=== PATIENT | male | born 1935 | race Caucasian/White ===

== ENCOUNTER 2017-11-26 17:17 | Observation (INO) | payer MEDICARE, OTHER ==
[~2017-11-26] VITALS: Ht 180.3 cm; Wt 90.3 kg
[~2017-11-26 17:17] MED LIST: ADVICOR 500 MG1 EACH; ALTACE5 MG PO; AMARYL1 MG PO; ASA5UEC; BENTYL 10 MG CA10 MG PO; BETAMETHASONE D15 G1; COUMADIN 3 MG TA3 M1 PO; COUMADIN 4 MG TA4 M1 PO; COUMADIN PO; DIOVAN HCT 80-1 EACH; DOXYCYCLINE 10100 MG PO; ENOXAPARIN100 MG/11 SUBQ; FISH OIL 500 M1 EAC1 PO; GLUCOPHAGE500 MG PO; IBUPROFEN 200200 M1 PO; LEVAQUIN 500 M500 M2; LOVENOX SUBQ; Nabumetone PO; OMEGA-31000 M1 PO; OXYBUTYNIN 5 MG5 M2 PO; POTASSIUM CHLO10 ME1 PO; PREDNISONE 10 M10 MG PO; PROTONIX40 M1 PO; TAMSULOSIN HCL0.4 MG; TRIAMCINOLONE A80 G2 TOP; VITAMIN D2000 UNIT PO; ZETIA10 MG; ZPAK PO
[2017-11-26 17:27] VITALS: BP 161/83
[2017-11-26] MEDS ORDERED: OXYBUTYNIN 5 MG5 M2 PO (17:35)
[2017-11-26 19:11] LABS: APTT 37.3 Seconds (25.0-31.3); INR 2.8; PROTIME 26.8 Seconds (9.20-11.50)
[2017-11-26 20:43] LABS: HEMATOCRIT 47.1 % (42.0-52.0); HEMOGLOBIN 16.2 gm/dL (14.0-18.0); MCH 28.2 pg (26.0-34.0); MCHC 34.4 g/dL (28.0-37.0); MCV 82.2 fL (80.0-100.0); MPV 8.8 fl. (7.2-11.1); NUCLEATED RBCS 0 /100WBC; PLATELET COUNT* 216 thou/uL (150-400); RBC 5.74 mil/uL (4.50-6.00); RDW-CV 13.7 % (10.5-14.5); WBC 17.1 thou/uL (4.0-11.0)
[2017-11-26 21:03] LABS: CALCIUM 9.7 mg/dL (8.5-10.1); CREATININE 1.6 mg/dL (0.6-1.3); POTASSIUM 4.2 mmol/L (3.5-5.1)
[2017-11-26 21:04] LABS: ABSOLUTE EOSINOPHILS 0.2 thou/uL (0.0-0.7); ABSOLUTE LYMPHOCYTES 1.5 thou/uL (0.8-5.3); ABSOLUTE MONOCYTES 0.7 thou/uL (0.0-1.2); ABSOLUTE NEUTROPHILS 14.7 thou/uL (1.6-8.1)
[2017-11-26 21:05] LABS: PLATELET ESTIMATE ADEQUATE
[2017-11-26 21:07] LABS: ALBUMIN 3.7 g/dL (3.4-5.0); TOTAL BILIRUBIN 1.4 mg/dL (<0.1-1.0); TOTAL PROTEIN 6.9 g/dL (6.4-8.2)
[2017-11-26 21:30] VITALS: BP 156/76
[2017-11-26 21:33] VITALS: BP 167/77
[2017-11-26 23:14] VITALS: BP 126/72; BP 150/72
[2017-11-27 04:00] VITALS: BP 131/62
--- NOTE | 2017-11-27 04:32 | NUR ---
RECEIVED REPORT FROM ER NURSE TACOS AT 2129, PT ARRIVED TO UNIT AT 2144. PT VOICED NO CONCERNS, SPOUSE AT BEDSIDE, PT AAOX4, DENIES PAIN. FALL PRECAUTIONS IN PLACE, AT 2333, INFUSION OF FRESH FROZEN PLASMA STARTED, AT 0028. COMPLETED ADMINISTRATION. PT BEGAN C/O ITCHING. RED BUMPS NOTED TO CHEST AND FACE, DR. MONET NOTIFIED AND NEW ORDERS RECEIVED AT 0033. HOURLY ROUNDING COMPLETED, CONTINUES ON TELE MONITOR TRACING SINUS RHYTHM THIS SHIFT. CALL LIGHT WITHIN REACH.
[2017-11-27 04:51] LABS: INR 2.2; PROTIME 21.5 Seconds (9.20-11.50)
[2017-11-27 04:54] LABS: HEMATOCRIT 45.9 % (42.0-52.0); HEMOGLOBIN 15.8 gm/dL (14.0-18.0); MCH 28.3 pg (26.0-34.0); MCHC 34.3 g/dL (28.0-37.0); MCV 82.4 fL (80.0-100.0); MPV 8.6 fl. (7.2-11.1); RBC 5.58 mil/uL (4.50-6.00); RDW-CV 13.5 % (10.5-14.5); WBC 14.6 thou/uL (4.0-11.0)
[2017-11-27 05:18] LABS: ALBUMIN 3.8 g/dL (3.4-5.0); CALCIUM 9.9 mg/dL (8.5-10.1); CREATININE 1.6 mg/dL (0.6-1.3); POTASSIUM 4.8 mmol/L (3.5-5.1); TOTAL BILIRUBIN 1.8 mg/dL (<0.1-1.0); TOTAL PROTEIN 6.5 g/dL (6.4-8.2)
[2017-11-27] MEDS ORDERED: OXYBUTYNIN 5 MG5 M2 PO (08:06)
[2017-11-27] MEDS ORDERED: BETAMETHASONE D15 G1 TOP (08:11)
[2017-11-27 09:00] VITALS: BP 159/78
--- NOTE | 2017-11-27 10:00 | NUR ---
ASSUMED PT. CARE AND RECEIVED REPORT AT 0730. PT A/OX4, WITH SOME NOTED CONFUSION, VSS, MONITOR ON TRACING SR. PT. DENIES CURRENT PAIN/SOB. ON RA @ 93%. FULL ASSESSMENT COMPLETED, REFER TO CHARTING. DR. RIZVI NOTIFIED VIA PHONE THAT PT. INR 2.2 TODAY. ORDERS RECEIVED TO SLOWLY ALLOW PT. TO DRINK SIPS OF WATER AND SEE IF HE CAN SWALLOW OR IF FOOD BOLUS REMAINS IN PLACE. PT. TOLERATED WATER WELL, ABLE TO DRINK WITHOUT DIFFICULTY AND DOES NOT FEEL LIKE ANYTHING REMAINS IN ESOPHOGUS. BRIAN Altamirano HERE TO SEE PT, UPDATED ON CURRENT SITUATION. PLAN FOR PT. TO RECEIVED VITAMIN K TODAY, THEN DC HOME. FOLLOW UP OUTPATIENT FOR EGD TOMORROW AT [facility]. PT. AT BEDSIDE, AWARE OF PLAN. PT. MUST TOLERATED FULL LIQUID LUNCH FIRST, WILL MONITOR. FALL PRECAUTIONS REMAIN IN PLACE.
--- NOTE | 2017-11-27 11:00 | NUR ---
MET WITH PT AND TO DISCUSS HOME SITUATION/DC PLANNING. PT LIVES WITH , USES CANE AND IS FAIRLY INDEPENDENT. ABLE TO DO HIS OWN ADLS. THEY HAVE A SON WHO ASSISTS NEEDED. DOES DRIVING AND COOKING. PT TO DC HOME TODAY AND HAVE OUTPT TEST TOMORROW. HE IS AWARE. NO OTHER NEEDS ID'D
[2017-11-27 11:30] VITALS: BP 146/69
[2017-11-27 13:42] VITALS: BP 146/69
--- NOTE | 2017-11-27 14:48 | EKG ---
[place] [address] ELECTROCARDIOGRAM REPORT Name: MIKEDARRELL Gab [address] [id number] Admission: 11/26/17 Attend Phys: Luis Felipe Alston MD Discharge: 11/27/17 Date of : 33 Report #: [id number] THIS REPORT FOR: //name// [facility] Test Date: 2017-11-27 Test Time: 10:08:50 Pat Name: DARRELL MCKEON Department: Room: [address] Gender: M Electronic Drafter: : 1935 Requested By: Junie Mcallister Order Number: [id number] Barry MD: Jacob Pressley Measurements Intervals [place] Rate: 74 P: 65 WY: 165 QRS: 11 QRSD: 98 T: 58 QT: 397 QTc: 441 Interpretive Statements Sinus rhythm Low voltage, extremity and precordial leads Compared to ECG 04/02/2016 13:13:44 no change Electronically Signed On 11-27-2017 14:47:59 [employer]ATION[employer] MANAGER by Jacob Pressley [email or web address] <ELECTRONICALLY SIGNED> By: Jacob Pressley MD, [facility] 11/27/17 1447 1008 [id number] Jacob Pressley MD, [facility] /EPI
--- NOTE | 2017-11-27 14:53 | NUR ---
DC ORDERS RECEIVED IF PT. TOLERATED LUNCH. PT. ABLE TO COMPLETE LUNCH WITH NO COMPLAINTS OF NAUSEA OR FEELING LIKE FOOD IN ESOPHOGUS. PT. AND SPOUSE GIVEN DC INSTRUCTIONS, INLCUDING DO NOT TAKE COUMADIN TONIGHT AND FOLLOW UP AT [facility] IN MORNING AT 0900 WITH NPO AFTER MIDNIGHT. ALL QUESTIONS ANSWERED. PT. LEFT VIA WHEELCHAIR TO RETURN HOME IN PERSONAL VEHICLE, ALL BELONGINGS ACCOUNTED FOR.
--- NOTE | 2017-12-10 16:26 | CON ---
[address] [address] CONSULTATION Name: DARRELL MCKEON Room: [address] Michelet Briggs#: [id number] Admission: 11/26/17 Attend Phys: Luis Felipe Alston MD Discharge: 11/27/17 Date of : 33 Report #: [id number] THIS REPORT FOR: //name// CC: Luis Felipe Whiteside DO Luis Felipe Alston DICTATED BY: Sarah Schrader [facility] DATE OF SERVICE: 11/27/2017 Please note at the time of this dictation, the patient was seen and physically examined by myself. REASON FOR CONSULTATION: Complaining of a food bolus. HISTORY OF PRESENT ILLNESS: This is an 82-year-old male who was eating steak the night before yesterday prior to admission and was unable to keep anything down since doing that at this time. The patient did have a similar episode back in January of 2017, in which he presented to the ER and had a food bolus, which was removed, no dilatation was done at that time because the patient was supratherapeutic on his INR secondary to his warfarin and never returned as an outpatient to get his Schatzki ring dilated at that time. The patient states prior to his episode yesterday evening, he was doing fine and had not really noticed much getting stuck in his throat. The patient this a.m. was able to swallow water without any difficulty and did not feel anything coming up at this time. The patient did have a colonoscopy done in 2016, which just showed a hyperplastic polyp, otherwise was negative. ALLERGIES: No known drug allergies. MEDICATIONS: From home include Altace, vitamin D, nabumetone, Amaryl, warfarin and oxybutynin. PAST MEDICAL HISTORY: Type 2 diabetes, hyperlipidemia, history of PE and DVT back in 2013, hypertension, and asthma. PAST SURGICAL HISTORY: He has had endoscopy studies done in the past and 2 kidney stone surgeries and several eye operations. FAMILY HISTORY: Noncontributory. SOCIAL HISTORY: Past use of alcohol and tobacco use, but no illegal drug use at this time. REVIEW OF SYSTEMS: Twelve-point review of systems [place] [address] CONSULTATION Name: DARRELL MCKEON Room: [address]#: [id number] Admission: 11/26/17 Attend Phys: Luis Felipe Alston MD Discharge: 11/27/17 Date of : 33 Report #: [id number] except what is mentioned in the HPI. PHYSICAL EXAMINATION: VITAL SIGNS: Temperature 36.9, pulse 71, respirations 18, and blood pressure 131/62. HEART: Regular rate and rhythm. LUNGS: Clear. ABDOMEN: Soft, positive bowel sounds in all 4 quadrants with no masses or tenderness noted and no difficulty in swallowing liquids this a.m. LABORATORY DATA: Hemoglobin is 15.8, hematocrit 45.9, white count is 14.6, and platelet is 232. Sodium 139, potassium 4.8, chloride 103, CO2 of 26, BUN is 20, creatinine is 1.6. GFR is 41. Total bili is 1.8, alk phos 58, ALT 23, AST is 13. PT is 21.5 and INR is 2.2. IMPRESSION: 1. Food bolus dysphagia. 2. History of a Schatzki ring. 3. Anticoagulant therapy secondary to deep venous thrombosis and history of warfarin for this. PLAN: 1. EGD as an outpatient tomorrow at 10:[address] [facility] [address] Mcallister. This has all been discussed with the patient in regards to the time of arrival. 2. We will give him some vitamin K 10 mcg today prior to discharge. 3. We will hold his warfarin today as well. Thank you for allowing us to participate in this patient's care. Please do not hesitate to call with any questions in regard to this consult. ADDENDUM The patient with history of anticoagulation therapy whose INR is 2.8. He has history of Schatzki ring and had a food bolus in January 2017. He presented with another food bolus, but had INR of 2.8. He currently has passed the food bolus. We will consider an upper endoscopy as outpatient with possible dilation of his Schatzki ring. He has received vitamin K yesterday, we will give him another vitamin K today with hope of doing his procedure tomorrow as outpatient. Meanwhile, ____ his Coumadin. <ELECTRONICALLY SIGNED> By: Junie Mcallister MD 12/10/17 1626 [id number] [id number] Mcallister MD /nt
== END 2017-11-27 14:27 | disposition home or self-care (01) ==
LOC: M.ERS 17:17 → M.2W 21:03 → M.TBA-ER 21:03 → M.2W 21:03
PROVIDERS: Emergency Medicine; ADMIT Internal Medicine
DX: T18.128A Food in esophagus causing other injury, initial encounter (principal); R13.10 Dysphagia, unspecified; I10 Essential (primary) hypertension; E11.9 Type 2 diabetes mellitus without complications; E78.5 Hyperlipidemia, unspecified; M19.90 Unspecified osteoarthritis, unspecified site; J45.909 Unspecified asthma, uncomplicated; Z87.19 Personal history of other diseases of the digestive system; Z79.01 Long term (current) use of anticoagulants; Z79.899 Other long term (current) drug therapy